=== PATIENT | male | born 1970 | race Caucasian/White ===

== ENCOUNTER 2023-03-10 12:41 | Emergency (ER) | payer BC, SELFPAY ==
[2023-03-10 12:44] VITALS: BP 142/92
[2023-03-10 13:05] LABS: % Basophils 0.3 % (0-2); % Eosinophils 0.6 % (0-6); % Immature Granulocytes 0.2 % (0-0.5); % Lymphocytes 27.2 % (20.5-51.1); % Monocytes 6.3 % (1.7-9.3); % Neutrophils 65.4 % (42.2-75.2); Absolute Lymphocytes 1.7 10^3/uL (1.2-3.4); Absolute Monocytes 0.4 10^3/uL (0.1-0.6); Hematocrit 45.7 % (39.0-52.0); Hemoglobin 15.3 g/dL (13.0-18.0); Mean Corp Hgb Conc. 33.5 g/dL (33.0-37.0); Mean Corpuscular Hgb 28.6 pg (27.0-31.0); Mean Corpuscular Volume 85.4 fL (80.0-94.0); Mean Platelet Volume 10.3 fL (7.4-10.4); Nucleated Red Blood Cells % 0 % (-); Platelet Count 229 10^3/uL (130-400); Red Blood Cell Count 5.35 10^6/uL (4.70-6.10); Red Cell Dist. Width 12.4 % (11.5-14.5); White Blood Cell Count 6.2 10^3/uL (4.8-10.8)
[2023-03-10 13:47] LABS: ALT (SGPT) 46 U/L (0-50); AST (SGOT) 35 U/L (17-59); Albumin 4.5 g/dl (3.5-5.0); Alkaline Phosphatase 82 U/L (38-126); Blood Urea Nitrogen 17 mg/dl (9-20); Calcium 10.5 mg/dl (8.4-10.2); Carbon Dioxide 26 mmol/L (22-30); Chloride 102 mmol/L (98-107); Glucose 111 mg/dl (70-99); Potassium 4.2 mmol/L (3.5-5.1); Sodium 139 mmol/L (135-145); Total Bilirubin 1.1 mg/dl (0.2-1.3); Total Protein 7.3 g/dl (6.3-8.2); eGFR > 60.00
--- NOTE | 2023-03-10 14:39 | ED.GENMED ---
History of Present Illness
General
Chief Complaint: Headache
Source: patient
Exam Limitations: none
Time Seen by Provider: 03/10/23 14:24
Travel History
Have you had any contact with someone who has COVID-19?: No
Do you have any symptoms of coronavirus? Fever > 100 degrees, chills, cough, shortness of breath, sore throat, loss of taste or smell, muscle aches, or headache?: No
History of Present Illness
History of Present Illness:
52-year-old male presents with left sided headache mostly superior scalp slightly towards the catholic area. Started last night after brushing his hands back along his scalp. Admits to anxiety and stress. No visual issues no numbness tingling
weakness or other complaints. No rash.
Past History
Past History
ED Past Medical History: HTN, Psychiatric (Anxiety/depression) and Other (Chronic abdominal pain)
ED Past Surgical History: Urological
Social History
Tobacco: Former smoker
Alcohol: Former
Drug: Former user
Personal:
Living: with family
Employment: Employed
Family History
Family History: Hypertension
Review of Systems
Review of Systems
All Other Systems: Not applicable
Constitutional: Denies fever
Neurological: Denies dizzy, weakness or numbness
Phy Exam
Physical Exam
Physical Exam:
GENERAL: Alert and oriented in no apparent distress
EYE: Orbits normal. Extraocular muscles intact. No nystagmus
NECK: Supple, no carotid bruits
CARDIAC: Regular rate and rhythm without any obvious murmurs.
LUNGS: Clear breath sounds,normal
ABDOMEN: Soft, without focal tenderness or distention
NEUROLOGICAL: Alert and oriented , speech normal. Cranial nerves II through XII intact. Ggdhum-fi-hayw normal. No drift.
SKIN: Warm and dry, no rash or lesion, no discoloration, skin intact.
MUSCULOSKELETAL: No edema,no deformity.Good color
PSYCH: Normal and appropriate interaction.
Course
Orders/Labs/Results
Orders:
Orders
03/10/23 12:52
CMP [Comprehensive Metabolic Panel] Urgent
Complete Blood Count/With Diff Urgent
Erythrocyte Sed Rate Urgent
Comment: ADD ON
03/10/23 14:37
Add On- LAB Urgent
Tests Added?: esr
CT Head W/o Iv Contrast Urgent
Comment:
Reason For Exam: Left-sided headache
Abnormal Lab Results
03/10/23
12:52
Glucose 111 H mg/dl
(70-99)
Calcium 10.5 H mg/dl
(8.4-10.2)
03/10/23 12:52
03/10/23 12:52
Vital Signs
Initial and Last Documented VS:
Initial Vital Signs
Temp Pulse Resp BP Pulse Ox
98 F 89 18 142/92 100
03/10/23 12:44 03/10/23 12:44 03/10/23 12:44 03/10/23 12:44 03/10/23 12:44
Last Documented Vital Signs
Temp Pulse Resp BP Pulse Ox
98 F 89 18 142/92 100
03/10/23 12:44 03/10/23 12:44 03/10/23 12:44 03/10/23 12:44 03/10/23 12:44
MDM/Problems Addressed
Differential Diagnosis Includes:
Patient is describing very much a superficial cephalgia like paresthesia and pain. No rash. No vesicles. Highly doubt dissection. Has no neck pain no carotid bruit. ET scan will be done for completeness. ESR added.
*Radiology
Radiology exam reviewed: radiology read reviewed (sinusitis)
*Pulse Oximetry
Patient hypoxic: no
*Critical Care Note
Total Time (30-74mins, 75-104mins- exclusive of procedures): Not Applicable
Data Reviewed
Review of Other/Old Records Reveals: Labs, Records and Testing
ED Attending Note
-
Portions of this chart may have been created with voice recognition software.� Occasional wrong word or��sound alike� substitutions may have occurred due to the inherent limitations of voice recognition software.
Discharge Plan
Departure
Patient Disposition: Home (Routine Discharge)
Date of Disposition: 03/10/23
Time of Disposition: 15:57
Patient with high blood pressure during this ER visit?: Yes
Discharge Problem:
Left sided headache, Sinusitis
Instructions: Headache, Adult (DC), BLOOD PRESSURE
Prescriptions:
No Action
buspirone 5 MG tablet
5 mg PO BID
clonidine HCl 0.2 MG tablet
0.2 mg PO BID
lansoprazole 30 MG capsule,delayed release(DR/EC)
30 mg PO DAILY
gabapentin 100 MG capsule
100 mg PO BID
lamotrigine 100 MG tablet
100 mg PO DAILY
lamotrigine 100 MG tablet
50 mg PO HS
Referrals:
NONE,* [Active] -
Activity Restrictions/Additional Instructions:
Follow-up with your physician in the next few days
Interventions
Interventions:
*ED COVID-19 Vaccine History Last Done: 03/10/23 12:45
*Nursing Disposition Last Done: 03/10/23 16:56
ED- Neurological Assessment Last Done: 03/10/23 14:13
Discharge Date and Time
Discharge Date/Time: 03/10/23 16:56
[2023-03-10 15:11] LABS: Erythrocyte Sed Rate 11 mm/hour (0-20)
== END 2023-03-10 16:56 | disposition home or self-care (01) ==
LOC: EMR 12:41
PROVIDERS: Student in an Organized Health Care Education/Training Program; EMERGENCY PHYSICIAN Emergency Medicine; FAMILY PHYSICIAN Family Medicine
DX: R51.9 Headache, unspecified (principal); J32.9 Chronic sinusitis, unspecified; I10 Essential (primary) hypertension; Z87.891 Personal history of nicotine dependence
CPT/HCPCS: 99284; 70450; 80053; 85025; 85652

== ENCOUNTER → 2023-06-20 | Outpatient (REF) | payer OTHER, SELFPAY | LOC: DHSLP | PROVIDERS: ATTENDING PHYSICIAN Internal Medicine Critical Care Medicine; FAMILY PHYSICIAN Family Medicine | DX: G47.30 Sleep apnea, unspecified (principal); R06.83 Snoring | CPT/HCPCS: 95800 ==

== ENCOUNTER → 2023-12-25 09:44 | Outpatient (REF) | payer OTHER, SELFPAY | LOC: HWRAD 09:44 | PROVIDERS: ATTENDING PHYSICIAN Internal Medicine Critical Care Medicine; FAMILY PHYSICIAN Family Medicine | DX: Z87.891 Personal history of nicotine dependence (principal) | CPT/HCPCS: 71271 ==

== ENCOUNTER 2024-11-04 06:22 | Day surgery (SDC) | payer OTHER, SELFPAY | END 2024-11-04 14:11 | disposition home or self-care (01) | LOC: GI 06:22 | PROVIDERS: ATTENDING PHYSICIAN Specialist | DX: Z12.11 Encounter for screening for malignant neoplasm of colon (principal); K57.30 Diverticulosis of large intestine without perforation or abscess without bleeding; K20.90 Esophagitis, unspecified without bleeding; K22.89 Other specified disease of esophagus; K31.89 Other diseases of stomach and duodenum; Z86.0101 Personal history of adenomatous and serrated colon polyps; Z13.810 Encounter for screening for upper gastrointestinal disorder; Z87.19 Personal history of other diseases of the digestive system | CPT/HCPCS: 43239; G0121; 88305; 88342 ==